=== PATIENT | female | born 2000 | race Caucasian/White ===

== ENCOUNTER → 2019-12-23 16:20 | Outpatient (CLI) | payer BC, SELFPAY ==
--- NOTE | 2019-12-23 16:21 | XR_ITS ---
PROCEDURE: XR SHOULDER LT MIN 2V CLINICAL INDICATION: shoulder pain COMPARISON: No exams were available for comparison FINDINGS: No fracture, dislocation, lytic change, or blastic change evident. No significant degenerative change IMPRESSION: No acute findings. Dictated by: Arsalan Aquino MD 12/23/2019 16:40 Electronically signed by Arsalan Aquino MD in [place] 12/23/2019 16:40
== END ==
PROVIDERS: PCP Nurse Practitioner Family; Visit Provider Nurse Practitioner Family
DX: M25.512 Pain in left shoulder (principal)
CPT/HCPCS: 73030

== ENCOUNTER → 2020-01-09 08:31 | Outpatient (CLI) | payer BC, SELFPAY ==
--- NOTE | 2020-01-09 08:32 | MR_ITS ---
PROCEDURE: MR SHOULDER LT WO CON CLINICAL INDICATION: shoulder pain Left shoulder pain COMPARISON: XR SHOULDER LT MIN 2V from 12/23/2019 TECHNIQUE: Routine multiplanar multi echo sequences are performed without gadolinium enhancement. FINDINGS: There is slight increased T2 signal involving the supraspinatus tendon suggesting tendinopathy/tendinosis. No evidence of rotator cuff tear. The supraspinatus, infraspinatus, subscapularis, and teres minor tendons appear intact. The bicipital tendon is in place. The labral have an unremarkable appearance. No significant effusion evident. No fracture or dislocation. There is borderline narrowing of the acromial humeral interval at 6 mm IMPRESSION: 1. No evidence of rotator cuff tear or labral tear. 2. Borderline narrowing of the acromial humeral interval with tendinopathy/tendinosis of the supraspinatus tendon Dictated by: Arsalan Aquino MD 01/10/2020 09:38 Electronically signed by Arsalan Aquino MD in [place] 01/10/2020 09:38
== END ==
PROVIDERS: PCP Nurse Practitioner Family; Visit Provider Nurse Practitioner Family
DX: M25.512 Pain in left shoulder (principal)
CPT/HCPCS: 73221

== ENCOUNTER → 2020-08-16 17:14 | Outpatient (CLI) | payer BC, SELFPAY ==
[2020-08-16 17:39] LABS: Basophils # 0.1 K/mm3 (0-0.2); Basophils % 0.6 % (0.1-2.0); Eosinophils # 0.2 K/mm3 (0.0-0.4); Eosinophils % 2.1 % (0.1-12.0); Hematocrit 48.5 % (37.0-47.0); Hemoglobin 15.6 g/dL (12.2-16.2); Lymphocytes # 3.1 K/mm3 (0.7-4.5); Lymphocytes % 33.3 % (10-50); Mean Corpuscular HGB Conc 32.3 g/dL (31.8-35.4); Mean Corpuscular Hemoglobin 28.8 pg (27.0-31.2); Mean Corpuscular Volume 89.3 fl (81-99); Mean Platelet Volume 7.8 fl (7.4-10.4); Monocytes # 0.5 K/mm3 (0.1-1.0); Monocytes % 5.8 % (1.7-9.3); Neutrophils # 5.4 K/mm3 (1.8-7.8); Neutrophils % 58.1 % (37.0-80.0); Platelet Count 337 K/mm3 (142-424); Red Blood Count 5.43 M/mm3 (4.20-5.40); Red Cell Distribution Width 12.9 % (11.5-17.5); White Blood Count 9.3 K/mm3 (4.8-10.8)
[2020-08-16 17:50] LABS: Chloride 107 mmol/L (98-107)
[2020-08-16 17:51] LABS: Potassium 3.9 mmoL/L (3.5-5.1); Sodium 141 mmol/L (136-145)
[2020-08-16 17:53] LABS: Alanine Aminotransferase 17 U/L (12-78); Albumin Level 4.3 g/dl (3.5-5.0); Albumin/Globulin Ratio 1.5 (1.1-1.8); Alkaline Phosphatase 64 U/L (38-126); Anion Gap 12.9 mEq/L (5-15); Aspartate Amino Transferase 23 U/L (14-36); Bilirubin,Total 0.6 mg/dl (0.2-1.3); Blood Urea Nitrogen 9 mg/dl (7-17); Carbon Dioxide 25 mmol/L (22.0-30.0); Estimated Glomerular Filt Rate 156 ml/min (>60); GFR (African American) 188 ML/MIN (>60); Globulin 2.9 g/dL (1.3-3.2); Total Protein,Serum 7.2 g/dl (6.3-8.2)
[2020-08-16 17:54] LABS: Calcium 9.1 mg/dl (8.4-10.2); Glucose 119 mg/dl (74-100)
[2020-08-16 17:59] LABS: C-Reactive Protein 0.4 mg/L (0-4)
[2020-08-16 18:10] LABS: Erythrocyte Sedimentation Rate 4 mm/hr (0-20); T4 (Thyroxine) 7.4 ug/dl (5.53-11.0)
[2020-08-16 18:24] LABS: Thyroid Stimulating Hormone 1.88 uIU/mL (0.465-4.68)
[2020-08-16 18:41] LABS: Hemoglobin A1C 4.9 % (4.0-6.0)
[2020-08-18 18:18] LABS: RA Latex Turbid. <10.0 IU/mL (0.0-13.9)
[2020-08-19 23:38] LABS: Anti-Cyclic Citrullinated Pept 5 units (0-19)
[2020-08-20 12:18] LABS: Anti-Centromere B Antibodies <0.2 AI (0.0-0.9); Anti-Jo-1 <0.2 AI (0.0-0.9); Anti-Smith Antibody <0.2 AI (0.0-0.9); Antichromatin Antibodies <0.2 AI (0.0-0.9); Antiscleroderma-70 Antibodies <0.2 AI (0.0-0.9); Sjogren's Anti-SS-A <0.2 AI (0.0-0.9); Sjogren's Anti-SS-B <0.2 AI (0.0-0.9)
[2020-08-20 15:23] LABS: Anti-DNA (DS) Ab Qn 1 IU/mL (0-9)
== END ==
PROVIDERS: Visit Provider Nurse Practitioner Family
DX: M25.50 Pain in unspecified joint (principal); F32.9 Major depressive disorder, single episode, unspecified; F41.9 Anxiety disorder, unspecified; R73.09 Other abnormal glucose
CPT/HCPCS: 80053; 83036; 84436; 84443; 85025; 85651; 86140; 86200; 86225; 86235; 86431

== ENCOUNTER → 2021-03-27 22:01 | Outpatient (CLI) | payer BC, SELFPAY ==
[2021-03-27 22:55] LABS: Amphetamine/Metha Screen,Urine Negative ng/ml (<1000)
[2021-03-27 22:56] LABS: Barbiturates Screen,Urine Negative ng/ml (<200); Benzodiazepines Screen,Urine Negative ng/ml (<200)
[2021-03-27 22:57] LABS: Cannabinoid Screen,Urine Negative ng/ml (<50)
[2021-03-27 22:58] LABS: Cocaine Screen,Urine Negative ng/ml (<300); Methadone Screen,Urine Negative ng/ml (<300)
[2021-03-27 22:59] LABS: Opiate Screen,Urine Negative ng/ml (<300)
[2021-03-27 23:00] LABS: Phencyclidine Screen,Urine Negative ng/ml (<25)
[2021-03-27 23:01] LABS: T4 (Thyroxine) 6.3 ug/dl (5.53-11.0)
[2021-03-27 23:14] LABS: Thyroid Stimulating Hormone 2.32 uIU/mL (0.465-4.68)
== END ==
PROVIDERS: Visit Provider Nurse Practitioner Family
DX: E66.9 Obesity, unspecified (principal); Z68.30 Body mass index [BMI] 30.0-30.9, adult
CPT/HCPCS: 80305; 84436; 84443

== ENCOUNTER 2021-04-22 10:37 | Emergency (ER) | payer BC, SELFPAY ==
[2021-04-22 10:39] VITALS: BP 134/87; PULSE 95; RESP 16; TEMP 36.8; O2SAT 100; BMI 26.6
[2021-04-22 10:54] VITALS: BP 131/82; PULSE 98; RESP 18; TEMP 36.9
--- NOTE | 2021-04-22 11:03 | HMH.EDUTC ---
[facility] [place] Disposition Clinical Impression: Viral syndrome, Exposure to COVID-19 virus Disposition: Home, Self-Care Condition on Discharge: Good Instructions: Preventing the Spread of Coronavirus Discharge Instructions Additional Instructions: Drink plenty of fluids. Take tylenol for pain or fever. Return if you begin to have difficulty breathing. Follow up with your regular doctor. GO TO THE ER FOR ANY WORSENING SYMPTOMS Referrals: Blanca Yost APRN [Primary Care Provider] - Forms: Work/School Release Time of Disposition: 11:14 Medical Decision Making - Medical Records Medical records reviewed: No: I reviewed the patient's medical records. - Luis Miguel Inquiry Pt receiving controlled substance: No Vital Signs: 04/22/21 10:39 04/22/21 10:54 Temperature 98.2 F 98.5 F Temperature Source Oral Pulse Rate 98 H Pulse Rate [Left] 95 H Respiratory Rate 16 18 Blood Pressure 131/82 Blood Pressure [Right Arm] 134/87 Blood Pressure Mean [Right Arm] 102 Blood Pressure Source [Right Arm] Automatic Cuff Blood Pressure Position [Right Arm] Sitting 02 Sat by Pulse Oximetry 100 [facility] [place] HPI - General Stated complaint: covid test Time Seen by Provider: 04/22/21 11:03 Mode of Arrival: Ambulatory Source of Information: Patient Limitations: No Limitations Description of Symptoms (Recalled from Triage Doc. by RN): pt needs a covid test to return to work. pt is experiencing congestion, cough, and sudden loss of taste/smell. HEENT Symptoms (Recalled from RN notes): Yes (loss of taste and smell. congestion.) Resp Symptoms (Recalled from RN notes): Yes (cough-nonproductive) Skin Symptoms (Recalled from RN notes): No MS Symptoms (Recalled from RN notes): No Functional Status (Recalled from RN notes): na - History of Present Illness Provider Complaint: She needs a covid test to return to her work. She states that her symptoms are feeling better. - Related Data Previous Rx's Medication Instructions Recorded phentermine 37.5 mg tablet 37.5 mg PO DAILY #30 tab 03/27/21 Allergies Allergy/AdvReac Type Severity Reaction Status Date / Time No Known Allergies Allergy Verified 03/27/21 16:31 - Worker's Comp Is this a Worker's Comp case?: No [facility] History - Hepatitis A Screen Drug use history?: No High risk sexual behaviors?: No History of sexually transmitted infection?: No Currently employed?: No Childcare worker?: No Do you have indoor plumbing?: Yes Do you have electricity?: Yes Attestation statement:: This patient has been screened for Hepatitis A risk factors. I have reviewed the patient's past medical history: Yes Medical History: Reports:: Anxiety, Depression, Migraine Denies:: Chronic Obstructive Pulmonary Disease (COPD), Heart Murmur, Seizures Laterality Cases: Bilateral: Tonsillectomy, Other (wisdom teeth) Amputation: No Fractures: Yes - Social History Smoking Status: Never smoker Alcohol Intake: never Substance Use Type: denies use Occupational Status: student, employed Household Members: family - Psychiatric History Pschychiatric History:: Reports:: Anxiety, Depression Family Hx:: Hypertension ROS Obtained: Yes All systems reviewed & no additional complaints - Constitutional Constitutional: Reports system reviewed and no additional complaints, except as docu - Eyes Eyes: Reports system reviewed and no additional complaints, except as docu - ENT Ears, Nose, Mouth, and Throat: Reports system reviewed and no additional complaints, except as docu - Cardiovascular Cardiovascular: Reports system reviewed and no additional complaints, except as docu - Respiratory Respiratory: Reports system reviewed and no additional complaints, except as docu Physical Exam - General General appearance: alert, in no apparent distress - Head Head exam: atraumatic, normocephalic, normal inspection - Eye Eye exam: Present: normal appearance, PERRL, EOMI - ENT ENT ex
--- NOTE | 2021-04-22 17:29 | PC.NURSE ---
attempted to call pt about positive covid results.
== END 2021-04-22 11:16 | disposition home or self-care (01) ==
PROVIDERS: Emergency Provider Nurse Practitioner Family; PCP Nurse Practitioner Family
DX: U07.1 COVID-19 (principal); R05 Cough; R43.9 Unspecified disturbances of smell and taste
CPT/HCPCS: 99202; G0463; U0003

== ENCOUNTER → 2021-08-19 17:33 | Outpatient (CLI) | payer BC, SELFPAY ==
[2021-08-19 19:01] LABS: Basophils # 0.1 K/mm3 (0-0.2); Basophils % 0.7 % (0.1-2.0); Eosinophils # 0.1 K/mm3 (0.0-0.4); Eosinophils % 1.3 % (0.1-12.0); Hematocrit 42.2 % (37.0-47.0); Hemoglobin 13.8 g/dL (12.2-16.2); Lymphocytes # 3.1 K/mm3 (0.7-4.5); Lymphocytes % 36.3 % (10-50); Mean Corpuscular HGB Conc 32.7 g/dL (31.8-35.4); Mean Corpuscular Volume 88.7 fl (81-99); Mean Platelet Volume 8.6 fl (7.4-10.4); Monocytes # 0.6 K/mm3 (0.1-1.0); Monocytes % 6.8 % (1.7-9.3); Neutrophils # 4.7 K/mm3 (1.8-7.8); Neutrophils % 54.9 % (37.0-80.0); Platelet Count 342 K/mm3 (142-424); Red Blood Count 4.76 M/mm3 (4.20-5.40); Red Cell Distribution Width 13.3 % (11.5-17.5); White Blood Count 8.6 K/mm3 (4.8-10.8)
[2021-08-19 19:30] LABS: Alanine Aminotransferase 14 U/L (12-78); Albumin Level 4.6 g/dl (3.5-5.0); Albumin/Globulin Ratio 1.5 (1.1-1.8); Alkaline Phosphatase 49 U/L (38-126); Anion Gap 13.7 mEq/L (5-15); Aspartate Amino Transferase 25 U/L (14-36); Bilirubin,Total 0.5 mg/dl (0.2-1.3); Blood Urea Nitrogen 8 mg/dl (7-17); Calcium 10.1 mg/dl (8.4-10.2); Carbon Dioxide 29 mmol/L (22.0-30.0); Chloride 102 mmol/L (98-107); Chol/HDL Ratio 2.8 (1-3.5); Cholesterol 134 mg/dl (140-200); Estimated Glomerular Filt Rate 154 ml/min (>60); GFR (African American) 187 ML/MIN (>60); Glucose 81 mg/dl (74-100); HDL Cholesterol 48 mg/dl (40-60); Potassium 4.7 mmoL/L (3.5-5.1); Sodium 140 mmol/L (136-145); Total Protein,Serum 7.6 g/dl (6.3-8.2); Triglycerides 125 mg/dl (30-150); VLDL Cholesterol 25 mg/dL (0-40)
[2021-08-19 19:31] LABS: Hemoglobin A1C 6.6 % (4.0-6.0)
[2021-08-19 19:41] LABS: Direct LDL Cholesterol 56.57 mg/dL (100-129)
[2021-08-19 19:47] LABS: 25-OH Vitamin D, Total 54.7 ng/mL (30-100)
[2021-08-19 19:48] LABS: T4 (Thyroxine) 8.7 ug/dl (5.53-11.0)
[2021-08-19 19:50] LABS: HCG,Quantitative < 2 mIU/ml (0-5.42)
== END ==
PROVIDERS: Visit Provider Nurse Practitioner Family
DX: R11.2 Nausea with vomiting, unspecified (principal); N92.0 Excessive and frequent menstruation with regular cycle; R53.83 Other fatigue
CPT/HCPCS: 80053; 80061; 82306; 83036; 84436; 84443; 84702; 85025

== ENCOUNTER → 2021-08-20 13:26 | Outpatient (CLI) | payer BC, SELFPAY | PROVIDERS: Visit Provider Nurse Practitioner Family | DX: N92.0 Excessive and frequent menstruation with regular cycle (principal); R11.2 Nausea with vomiting, unspecified; R53.83 Other fatigue | CPT/HCPCS: 87086 ==

== ENCOUNTER → 2021-09-23 08:27 | Outpatient (CLI) | payer BC, SELFPAY ==
[2021-09-23 08:44] LABS: Coronavirus 19, PCR Not Detected (NotDetected); Influenza A, PCR Not Detected (NotDetected); Influenza B, PCR Not Detected (NotDetected)
== END ==
PROVIDERS: PCP Nurse Practitioner Family; Visit Provider Nurse Practitioner
DX: Z20.822 Contact with and (suspected) exposure to COVID-19 (principal)
CPT/HCPCS: C9803; U0003; U0005

== ENCOUNTER → 2021-09-25 09:47 | Outpatient (CLI) | payer BC, SELFPAY ==
[2021-09-25 10:03] LABS: Coronavirus 19, PCR Not Detected (NotDetected); Influenza A, PCR Not Detected (NotDetected); Influenza B, PCR Not Detected (NotDetected)
== END ==
PROVIDERS: Visit Provider Nurse Practitioner
DX: Z20.822 Contact with and (suspected) exposure to COVID-19 (principal)
CPT/HCPCS: C9803; U0003; U0005

== ENCOUNTER → 2021-11-13 17:43 | Outpatient (CLI) | payer BC, SELFPAY ==
[2021-11-13 18:42] LABS: Basophils # 0.1 K/mm3 (0-0.2); Basophils % 1.6 % (0.1-2.0); Eosinophils # 0.1 K/mm3 (0.0-0.4); Eosinophils % 1.1 % (0.1-12.0); Hematocrit 41.5 % (37.0-47.0); Hemoglobin 13.4 g/dL (12.2-16.2); Lymphocytes % 43.7 % (10-50); Mean Corpuscular HGB Conc 32.2 g/dL (31.8-35.4); Mean Corpuscular Hemoglobin 29.1 pg (27.0-31.2); Mean Corpuscular Volume 90.3 fl (81-99); Mean Platelet Volume 8.8 fl (7.4-10.4); Monocytes # 0.4 K/mm3 (0.1-1.0); Monocytes % 5.9 % (1.7-9.3); Neutrophils # 3.2 K/mm3 (1.8-7.8); Neutrophils % 47.6 % (37.0-80.0); Platelet Count 338 K/mm3 (142-424); Red Cell Distribution Width 13.3 % (11.5-17.5); White Blood Count 6.7 K/mm3 (4.8-10.8)
[2021-11-13 19:09] LABS: Hemoglobin A1C 4.7 % (4.0-6.0)
[2021-11-13 19:48] LABS: Alanine Aminotransferase 23 U/L (12-78); Albumin Level 4.9 g/dl (3.5-5.0); Albumin/Globulin Ratio 1.8 (1.1-1.8); Alkaline Phosphatase 53 U/L (38-126); Anion Gap 14.3 mEq/L (5-15); Aspartate Amino Transferase 38 U/L (14-36); Bilirubin,Total 0.5 mg/dl (0.2-1.3); Blood Urea Nitrogen 13 mg/dl (7-17); Calcium 9.6 mg/dl (8.4-10.2); Carbon Dioxide 28 mmol/L (22.0-30.0); Chloride 100 mmol/L (98-107); Estimated Glomerular Filt Rate 125 ml/min (>60); GFR (African American) 151 ML/MIN (>60); Globulin 2.8 g/dL (1.3-3.2); Glucose 72 mg/dl (74-100); Potassium 4.3 mmoL/L (3.5-5.1); Sodium 138 mmol/L (136-145); Total Protein,Serum 7.7 g/dl (6.3-8.2)
[2021-11-13 20:02] LABS: Microalbumin/Creatinine Ratio 7.7
[2021-11-13 20:08] LABS: Creatinine,Urine Random 122 mg/dL (Not Estab.)
[2021-11-13 20:18] LABS: Thyroid Stimulating Hormone 1.33 uIU/mL (0.465-4.68)
== END ==
PROVIDERS: Visit Provider Nurse Practitioner Family
DX: E11.9 Type 2 diabetes mellitus without complications (principal); Z79.84 Long term (current) use of oral hypoglycemic drugs
CPT/HCPCS: 80053; 82043; 82570; 83036; 84443; 85025

== ENCOUNTER → 2021-11-22 17:48 | Outpatient (CLI) | payer BC, SELFPAY ==
[2021-11-24 09:31] LABS: Hep A Ab, Total Negative (Negative); Hep B Surface Ab, Qual Reactive (.); Hepatitis C Antibody <0.1 s/co ratio (0.0-0.9)
== END ==
PROVIDERS: Visit Provider Nurse Practitioner Family
DX: Z02.0 Encounter for examination for admission to educational institution (principal)
CPT/HCPCS: 86706; 86708; 87380

== ENCOUNTER → 2021-12-03 18:09 | Outpatient (CLI) | payer BC, SELFPAY ==
[2021-12-05 08:31] LABS: Rubella Antibodies, IgG 5.99 index (Immune >0.99)
[2021-12-05 14:17] LABS: Measles Antibodies, IgG 47.7 AU/mL (Immune >16.4); Mumps Abs, IgG 95.2 AU/mL (Immune >10.9); Varicella Zoster IgG 313 index (Immune >165)
[2021-12-06 01:47] LABS: Hep Be Ag Negative (Negative)
== END ==
PROVIDERS: PCP Nurse Practitioner Family; Visit Provider Nurse Practitioner Family
DX: Z02.0 Encounter for examination for admission to educational institution (principal)
CPT/HCPCS: 86735; 86762; 86765; 86787; 87350

== ENCOUNTER → 2021-12-19 08:44 | Outpatient (CLI) | payer BC, SELFPAY | PROVIDERS: Visit Provider Nurse Practitioner | DX: Z20.822 Contact with and (suspected) exposure to COVID-19 (principal) | CPT/HCPCS: C9803; U0003; U0005 ==

== ENCOUNTER 2021-12-26 15:18 | Emergency (ER) | payer BC, SELFPAY ==
[2021-12-26 15:19] VITALS: BP 126/72; PULSE 110; RESP 26; TEMP 38.4; O2SAT 99; BMI 25.0
[2021-12-26 15:51] LABS: POC Glucose,Bedside 89 (70-110)
--- NOTE | 2021-12-26 15:57 | HMH.EDFEV ---
ED Disposition Clinical Impression: Viral syndrome Disposition: Home, Self-Care Condition on Discharge: Good Instructions: DI for Fever (Symptom) -- Adult Referrals: Blanca Yost APRN [Primary Care Provider] - - Critical Care Critical Care Time: No Attestation: On 12/26/21, the high probability of a clinically significant, sudden or life threatening deterioration of the following system(s) required my full and direct attention, intervention and personal management. The time I documented below is in addition to time spent performing reported procedures but includes the following listed in this critical care notation. Medical Decision Making - Medical Records Medical records reviewed: Yes: I reviewed the patient's medical records. - Luis Miguel Inquiry Pt receiving controlled substance: No Vital Signs: 12/26/21 15:19 Temperature 101.1 F H Temperature Source Oral Pulse Rate [Radial] 110 H Respiratory Rate 26 H Blood Pressure [Right Arm] 126/72 Blood Pressure Mean [Right Arm] 90 Blood Pressure Position [Right Arm] Sitting 02 Sat by Pulse Oximetry 99 Oxygen Delivery Method Room Air - Lab Data Lab Results 12/26/21 15:33: POC Glucose 89 12/26/21 15:35: Urine Color Yellow, Urine Appearance Clear, Urine pH 6.0, Ur Specific [place] 1.010, Urine Protein Negative, Urine Glucose (UA) Negative, Urine Ketones Negative, Urine Blood Negative, Urine Nitrate Negative, Urine Bilirubin Negative, Urine Urobilinogen 1.0, Ur Leukocyte Esterase 1+ A, Urine RBC None, Urine WBC 3-5, Ur Squamous Epith Cells 3-5, Urine Bacteria Trace 12/26/21 15:35: WBC 3.3 L, RBC 4.96, Hgb 13.9, Hct 41.0, MCV 82.6, MCH 28.0, MCHC 33.9, RDW 13.4, Plt Count 195, MPV 9.6, Neut % (Auto) 64.7, Lymph % (Auto) 28.9, [place] % (Auto) 4.7, Eos % (Auto) 0.2, Baso % (Auto) 1.5, Neut # (Auto) 2.1, Lymph # (Auto) 1.0, [place] # (Auto) 0.2, Eos # (Auto) 0.0, Baso # (Auto) 0.1 12/26/21 15:35: Sodium 133 L, Potassium 4.4, Chloride 100, Carbon Dioxide 26, Anion Gap 11.4, BUN 9, Creatinine 0.60, Estimated Creat Clear 163, Estimated GFR 125, Est GFR ( Amer) 151, Glucose 87, Calcium 8.6, Total Bilirubin 1.2, AST 80 H, ALT 74, Alkaline Phosphatase 63, Total Protein 7.5, Albumin 4.5, Globulin 3.0, Albumin/Globulin Ratio 1.5 12/26/21 15:35: Lactate 1.0 12/26/21 15:35: Urine HCG, Qual Negative 12/26/21 15:50: SARS-CoV-2 (PCR) Not detected, Influenza A Untype (PCR) Not detected, Influenza Type B (PCR) Not detected Result diagrams: 12/26/21 15:35 12/26/21 15:35 Orders (Tests/Meds): ED MEDICATIONS Discontinued Medications Generic Name Dose Route Start Last Admin Trade Name Freq PRN Reason Stop Dose Admin Acetaminophen 1,000 mg 12/26/21 15:53 12/26/21 15:56 Acetaminophen 500mg Tab PO 12/26/21 15:54 1,000 mg ONCE ONE Administration Sodium Chloride 1,000 mls @ 999 mls/hr 12/26/21 16:00 12/26/21 15:56 Sod Chlor 0.9% 1000ml Bag IV 12/26/21 17:00 999 mls/hr .Q1H1M KEELEY Administration ORDERS Category Date Time Status Blood Culture Stat Micro 12/26/21 15:44 Received Urine Culture Stat Micro 12/26/21 15:35 Received - Reevaluation(s) Time: 17:52 Reevaluation #1: On reevaluation, the patient is feeling better. Laboratory work unremarkable. Repeat neuro exam is normal. Patient is ambulatory. Findings consistent with viral syndrome. Patient needs follow-up with PCP in 48 hours. Given strict return precautions. Verbalized understanding. Medical Decision Narrative: 21-year-old female presented to the emergency department with some myalgias and thoughts of dehydration. The patient does have fever on initial presentation. I am concerned for possible UTI or other viral infection. Work-up initiated. Fever HPI - General Chief Complaint: Fever Stated Complaint: feels dehydrated Time Seen by Provider: 12/26/21 15:25 Mode of Arrival: Ambulatory Limitations: No Limitations Description of Symptoms (Recalled from ER Triage Doc. by Gudelia
[2021-12-26 16:05] LABS: Microscopic, Urine URINE MICROSCOPIC (MICROSCOPIC)
[2021-12-26 16:13] LABS: Coronavirus 19, PCR Not Detected (NotDetected); Influenza A, PCR Not Detected (NotDetected); Influenza B, PCR Not Detected (NotDetected)
[2021-12-26 16:14] LABS: Basophils # 0.1 K/mm3 (0-0.2); Basophils % 1.5 % (0.1-2.0); Eosinophils % 0.2 % (0.1-12.0); Hemoglobin 13.9 g/dL (12.2-16.2); Lymphocytes % 28.9 % (10-50); Mean Corpuscular HGB Conc 33.9 g/dL (31.8-35.4); Mean Corpuscular Volume 82.6 fl (81-99); Mean Platelet Volume 9.6 fl (7.4-10.4); Monocytes # 0.2 K/mm3 (0.1-1.0); Monocytes % 4.7 % (1.7-9.3); Neutrophils # 2.1 K/mm3 (1.8-7.8); Neutrophils % 64.7 % (37.0-80.0); Platelet Count 195 K/mm3 (142-424); Red Blood Count 4.96 M/mm3 (4.20-5.40); Red Cell Distribution Width 13.4 % (11.5-17.5); White Blood Count 3.3 K/mm3 (4.8-10.8)
[2021-12-26 16:16] LABS: Appearance,Urine CLEAR (Clear); Bilirubin,Urine Negative (Negative); Blood, Urine Negative (Negative); Color,Urine YELLOW (Yellow); Glucose,Urine (UA) Negative (Negative); Ketones,Urine Negative (Negative); Leukocyte Esterase,Urine 1+ (Negative); Nitrate,Urine Negative (Negative); Protein,Urine Negative (Negative)
[2021-12-26 16:20] LABS: Chloride 100 mmol/L (98-107)
[2021-12-26 16:21] LABS: Potassium 4.4 mmoL/L (3.5-5.1); Sodium 133 mmol/L (136-145); Urine Pregnancy, HCG Qual. Negative (Negative)
[2021-12-26 16:23] LABS: Alanine Aminotransferase 74 U/L (12-78); Albumin Level 4.5 g/dl (3.5-5.0); Albumin/Globulin Ratio 1.5 (1.1-1.8); Alkaline Phosphatase 63 U/L (38-126); Anion Gap 11.4 mEq/L (5-15); Aspartate Amino Transferase 80 U/L (14-36); Bilirubin,Total 1.2 mg/dl (0.2-1.3); Blood Urea Nitrogen 9 mg/dl (7-17); Calcium 8.6 mg/dl (8.4-10.2); Carbon Dioxide 26 mmol/L (22.0-30.0); Creatinine Clearance Estimated 163 mL/min (50-200); Estimated Glomerular Filt Rate 125 ml/min (>60); GFR (African American) 151 ML/MIN (>60); Glucose 87 mg/dl (74-100); Total Protein,Serum 7.5 g/dl (6.3-8.2)
[2021-12-26 16:30] VITALS: BP 99/62; PULSE 102; RESP 20; O2SAT 96
[2021-12-26 16:50] LABS: Bacteria,Urine Trace /lpf
[2021-12-26 17:30] VITALS: BP 109/62; PULSE 92; RESP 20; O2SAT 98
--- NOTE | 2021-12-26 17:30 | PC.NURSE ---
FAMILY AT BEDSIDE UPDATED ON PLAN OF CARE
[2021-12-26 18:31] VITALS: BP 105/62; PULSE 78; RESP 16; TEMP 36.6; O2SAT 98
== END 2021-12-26 18:35 | disposition home or self-care (01) ==
PROVIDERS: Emergency Provider Emergency Medicine; PCP Nurse Practitioner Family
DX: B34.9 Viral infection, unspecified (principal); R50.9 Fever, unspecified; E86.0 Dehydration; M79.10 Myalgia, unspecified site; R53.1 Weakness; Z20.822 Contact with and (suspected) exposure to COVID-19; G43.909 Migraine, unspecified, not intractable, without status migrainosus; F32.A Depression, unspecified; F41.9 Anxiety disorder, unspecified; Z79.84 Long term (current) use of oral hypoglycemic drugs; Z79.899 Other long term (current) drug therapy
CPT/HCPCS: 80053; 81001; 81025; 82962; 83605; 85025; 87040; 87086; 96360; 96365; 96375; 99283; C9803; U0003; U0005

== ENCOUNTER 2023-08-01 12:29 | Emergency (ER) | payer BC, SELFPAY ==
[2023-08-01 12:35] VITALS: BP 123/77; PULSE 84; RESP 20; TEMP 36.7; O2SAT 99; BMI 25.8
--- NOTE | 2023-08-01 12:45 | EXP.UTC ---
Discharge Plan Disposition Patient Disposition: Home, Self-Care Condition: Good Prescriptions Prescriptions: New sulfamethoxazole-trimethoprim [Bactrim DS] 800-160 mg tablet 1 tab PO Q12H Qty: 20 0RF No Action (DME) Dexcom G6 Transmitter Device See Rx Instructions .MEDSUPPLY Qty: 1 0RF Rx Instructions: As directed phentermine [Adipex-P] 37.5 mg tablet 37.5 mg PO DAILY Qty: 30 0RF Rx Instructions: must administer 30 minutes before or 1-2 hours after breakfast (DME) Dexcom G6 Sensor Device See Rx Instructions MISCELLANE .MEDSUPPLY Qty: 3 0RF Rx Instructions: As directed metformin 500 mg tablet extended release 24 hr 500 mg PO BID Qty: 60 2RF sertraline 50 mg tablet 50 mg PO DAILY Qty: 30 3RF Referrals Follow up/Referrals: Provider,Referral, MD [Primary Care Provider] - See instructions Clinical Impressions Clinical Impression: Mastitis Instructions Patient Instructions: DI for Mastitis Discharge ED Provider: Missy Gracia [facility] HPI General Stated complaint: sore breast Time Seen by Provider: 08/01/23 12:45 History of Present Illness Provider Complaint: Breast soreness, redness X 2 days. She is . No fever, but achy and tired. Onset (ago): day(s) Location: chest Relieving factors: none Exacerbating factors: none Associated symptoms: denies other symptoms Treatments prior to arrival: none Related Data Previous Rx's Medication Instructions Recorded blood-glucose transmitter (Dexcom #1 ea 09/09/21 G6 Transmitter device) blood-glucose sensor (Dexcom G6 #3 ea 10/28/21 Sensor device) phentermine 37.5 mg tablet 37.5 mg PO DAILY #30 tabs 11/22/21 (Adipex-P) metformin 500 mg tablet,extended 500 mg PO BID #60 tabs 11/25/21 release 24 hr sertraline 50 mg tablet 50 mg PO DAILY #30 tabs 01/24/22 sulfamethoxazole 800 1 tab PO Q12H #20 tabs 08/01/23 mg-trimethoprim 160 mg tablet (Bactrim DS) Allergies Allergy/AdvReac Type Severity Reaction Status Date / Time No Known Allergies Allergy Verified 11/22/21 13:16 [facility] Disclaimer: The information contained in this section may have been updated after the patient was seen, as this information can be updated by other users. Social History Smoking Status: Never smoker alcohol intake: never substance use type: denies use current occupational status: employed and student Travel in the last 8 weeks: None household members: family ROS Obtained: Yes All systems reviewed & no additional complaints except as documented Integumentary/Breasts Skin/Breast: Reports breast pain Physical Exam General General appearance: alert and in no apparent distress Head Head exam: atraumatic, normocephalic and normal inspection Eye Eye exam: Present normal appearance, PERRL and EOMI ENT ENT exam: Present normal exam, normal oropharynx, mucous membranes moist, TM's normal bilaterally and normal external ear exam Neck Neck exam: Present normal inspection, full ROM and trachea midline; Absent meningismus or lymphadenopathy Chest Chest inspection: Present normal inspection and symmetric chest wall rise; Absent tenderness Respiratory Respiratory exam: Present normal lung sounds bilaterally; Absent respiratory distress Cardiovascular Cardiovascular exam: Present regular rate and normal rhythm; Absent JVD Abdominal Exam Abdominal exam: Present soft and normal bowel sounds; Absent distention, tenderness or guarding Extremities Exam Extremities exam: Present normal inspection, full ROM and normal capillary refill; Absent calf tenderness Back Exam Back exam: Present normal inspection; Absent tenderness Neurological Exam Neurological exam: Present alert and oriented X3 Psychiatric Psychiatric exam: Present normal affect and normal mood Skin Skin exam: Present warm, dry, intact and normal color Lymphatic Lymphatic Findings: no adenopathy Medical Decision Making Luis Miguel
[2023-08-01 12:56] VITALS: BP 123/77; PULSE 84; RESP 20; TEMP 36.7; O2SAT 99
== END 2023-08-01 12:58 | disposition home or self-care (01) ==
PROVIDERS: Emergency Provider Physician Assistant
DX: N61.0 Mastitis without abscess (principal)
CPT/HCPCS: 99212; 99214; G0463

== ENCOUNTER 2024-02-21 16:48 | Emergency (ER) | payer BC, SELFPAY ==
[2024-02-21 17:10] VITALS: BP 134/88; PULSE 75; RESP 19; TEMP 36.9; O2SAT 100; BMI 27.9
[2024-02-21 17:25] LABS: UTC Pregnancy Test, Urine Negative (Negative)
--- NOTE | 2024-02-21 17:39 | EXP.UTC ---
Discharge Plan Disposition Patient Disposition: Home, Self-Care Condition: Good Prescriptions Prescriptions: New promethazine 12.5 mg tablet 12.5 mg PO TID PRN (Reason: nausea and vomiting) Qty: 7 0RF No Action (DME) Dexcom G6 Transmitter Device See Rx Instructions .MEDSUPPLY Qty: 1 0RF Rx Instructions: As directed (DME) Dexcom G6 Sensor Device See Rx Instructions MISCELLANE .MEDSUPPLY Qty: 3 0RF Rx Instructions: As directed sertraline 50 mg tablet 50 mg PO DAILY Qty: 30 3RF estradiol 0.01 % (0.1 mg/gram) cream See Rx Instructions .ROUTE .COMPLEX Patient Comments: INSERT 1 GRAM VAGINALLY ONCE DAILY EVERY NIGHT AT BEDTIME FOR 2 WEEKS, THEN AT BEDTIME TWICE A WEEK Rx Instructions: INSERT 1 GRAM VAGINALLY ONCE DAILY EVERY NIGHT AT BEDTIME FOR 2 WEEKS, THEN AT BEDTIME TWICE A WEEK Referrals Follow up/Referrals: Provider,Referral, MD [Primary Care Provider] - See instructions Activity Restrictions/Add. Instructions Additional Instructions/Restrictions: Drink extra fluids with and between meals. If you have difficulty drinking, try very small amounts of water or suck on ice chips. ? Avoid fruit juices, as these do not replace minerals and can actually increase diarrhea. ? Children and adults can use sports drinks to replenish electrolytes. Younger children and infants should use products formulated for children, like oral rehydration solutions. ? Eat food in small amounts and let your stomach recover. ? Get lots of rest. You may feel tired or weak. ? No greasy or fried foods for the next 24-48 hours BRAT diet Bananas Rice Apples and [place] ? Make sure to drink plenty of liquids ? Return if needed ? Straight to ER if any life threatening symptoms ? You was given an outpatient order for diarrhea panel, please collect specimen and bring back to outpatient lab then call back to the [facility] or follow up with family doctor for results Phenergan as prescribed for N/V ? Follow up with family doctor in the next 48-72 hours if no improvement or any worsening of symptoms Clinical Impressions Clinical Impression: Viral syndrome Stand Alone Forms Stand Alone Forms: Work/School Release Instructions Patient Instructions: Nausea and Vomiting-Adult Discharge ED Provider: Christina Ortiz [facility] [place] General Stated complaint: Vomiting Mode of Arrival: Ambulatory Source of Information: Patient Limitations: No Limitations Time Seen by Provider: 02/21/24 17:42 Description of Symptoms (Recalled from Triage Doc. by RN): Pt's symptoms are diarrhea, abdominal cramping, vomiting, and migraine. HEENT Symptoms (Recalled from RN notes): Yes Resp Symptoms (Recalled from RN notes): No Skin Symptoms (Recalled from RN notes): No MS Symptoms (Recalled from RN notes): No Functional Status (Recalled from RN notes): n/a History of Present Illness Provider Complaint: Patient states that she was in [place] and started with diarrhea States that she got home and diarrhea stopped but then she started vomiting and has had N/V since earlier today and she has had a achy like headache was worried that she was getting dehydrated so she came in Related Data Home Medications Medication Instructions Recorded Confirmed estradiol 0.01% (0.1 mg/gram) See Rx Instructions .Route .COMPLEX 02/21/24 02/21/24 vaginal cream Previous Rx's Medication Instructions Recorded blood-glucose transmitter (Dexcom #1 ea 09/09/21 G6 Transmitter device) blood-glucose sensor (Dexcom G6 #3 ea 10/28/21 Sensor device) sertraline 50 mg tablet 50 mg PO DAILY #30 tabs 01/24/22 promethazine 12.5 mg tablet 12.5 mg PO TID PRN nausea and 02/21/24 vomiting #7 tabs Allergies Allergy/AdvReac Type Severity Reaction Status Date / Time No Known Allergies Allergy Verified 11/22/21 13:16 Worker's Comp Is this a Worker's Comp case?: No [facility] Disclaimer: The information contained in this section may have been updated after the patient was seen, as this information can be updated by other users. Social History Smoking Status: Never smoker alcohol intake: never substance use type: denies use current occupational status: employed and student Travel in the last 8 weeks: None household members: family ROS Obtained: Yes All systems reviewed & no additional complaints except as documented and Yes Systems reviewed as appropriate & no additional complaints except as documented Constitutional Constitutional: Reports system reviewed and no additional complaints, except as documented, Reports as per HPI and Reports headache(s) ENT Ears, Nose, Mouth, and Throat: Reports system reviewed and no additional complaints, except as documented, Reports as per HPI and Reports headache(s) Cardiovascular Cardiovascular: Reports system reviewed and no additional complaints, except as documented and Reports as per HPI Respiratory Respiratory: Reports system reviewed and no additional complaints, except as documented and Reports as per HPI Gastrointestinal Gastrointestingal: Reports system reviewed and no additional complaints, except as documented, as per HPI, diarrhea (diarrhea 2 days ago but none since), nausea and vomiting Neurologic Neurologic: Reports headache(s) Physical Exam General General appearance: alert and in no apparent distress Respiratory Respiratory exam: Present normal lung sounds bilaterally; Absent respiratory distress or wheezes Cardiovascular Cardiovascular exam: Present regular rate, normal rhythm and normal heart sounds Neurological Exam Neurological exam: Present alert, oriented X3 and normal gait Medical Decision Making Luis Miguel Inquiry Pt receiving controlled substance: No Luis Miguel was queried for this patient: No Vital Signs: 02/21/24 17:10 Temperature 98.4 F Temperature Source Oral Pulse Rate [Right Radial] 75 Respiratory Rate 19 Blood Pressure [Right Arm] 134/88 Blood Pressure Mean [Right Arm] 103 Blood Pressure Source [Right Arm] Automatic Cuff Blood Pressure Position [Right Arm] Sitting 02 Sat by Pulse Oximetry 100 Oxygen Delivery Method Room Air Lab Data Lab results reviewed: Yes I reviewed the patient's lab results. Lab Results 02/21/24 17:16: Tst Clinic Negative Medical Decision Narrative: Medication discussed with pharmacy
[2024-02-21] MEDS: ONDANSETRON 4MG/2ML VIAL 4 MG IV (17:48)
[2024-02-21] MEDS: 0.9 % SODIUM CHLORIDE 1000ML 1,000 ML 500 ML IV (17:49)
[2024-02-21] MEDS: KETOROLAC 30MG/ML VIAL 15 MG IV (17:49)
[2024-02-21 19:03] VITALS: BP 134/88; PULSE 75; RESP 19; TEMP 36.9; O2SAT 100
== END 2024-02-21 19:03 | disposition home or self-care (01) ==
PROVIDERS: Emergency Provider Nurse Practitioner
DX: R11.2 Nausea with vomiting, unspecified (principal); R19.7 Diarrhea, unspecified; R51.9 Headache, unspecified; B34.9 Viral infection, unspecified
CPT/HCPCS: 81025; 96361; 96374; 96375; 99212; 99214; G0463; J2405

== ENCOUNTER 2024-11-16 15:00 | Outpatient (CLI) | payer BC, SELFPAY | END 2024-11-16 23:59 | disposition home or self-care (01) | LOC: LAB.DROPOF 11-17 08:45 | PROVIDERS: PCP Obstetrics & Gynecology; Visit Provider Obstetrics & Gynecology | DX: Z34.90 Encounter for supervision of normal pregnancy, unspecified, unspecified trimester (principal) | CPT/HCPCS: 87086 ==

== ENCOUNTER 2025-01-02 10:05 | Outpatient (CLI) | payer BC, SELFPAY ==
--- NOTE | 2025-01-02 10:06 | US_ITS ---
PROCEDURE: US OB /MATERNAL DETAIL CLINICAL INDICATION: anatomy COMPARISON: No exams were available for comparison FINDINGS: Transabdominal sonographic images of the pelvis were obtained. From her established due date she is 19 weeks 4 days. Single viable intrauterine gestation. Cephalic position. Placenta: Anteriorplacenta grade 1. There is an average amount of fluid. The cervix appears satisfactory. Closed and measuring 3.15 cm in length. Complete survey performed and was unremarkable on the submitted images as in PACS. No discrete anomalies identified on survey imaging by technologist. Active fetus. Three-vessel cord with satisfactory umbilical cord insertion. 4- chamber heart noted. Situs, aortic arch, LVOT, RVOT, three-vessel view appear normal. Survey of brain & ventricles Unremarkable. Cerebellum, thalamus, choroid plexus, cisterna magna appear normal. Face and neck survey unremarkable. Profile, nasion, lips and nose appeared normal. Diaphragm and chest views unremarkable. Abdomen: Both kidneys noted and unremarkable. Stomach and bladder noted and satisfactory. Spine: Survey of the spine satisfactory with no anomalies identified nor imaged. Cervical, thoracic, lower spine appear normal. Both arms and legs noted. Amniotic Fluid: Adequate. MVP 3.31 cm. Measurements: Average ultrasound age 20weeks. Estimated due date by ultrasound age 0705/22/2025. Estimated weight 318g BPD = 19weeks 6days HC = 19weeks 6days AC = 19weeks 6days FL = 20weeks Growth Percentile= 63 Heart Rate = 153bpm Cerebellum = 18weeks 2days Humerus = 21weeks 2days HC/AC is 1.18 FL/BPD is 0.7 FL/AC is 0.22 IMPRESSION: 1. Viable fetus in the cephalic presentation with an anterior placenta grade 1. 2. The fluid is within normal limits with an MVP 3.31 cm. 3. Anatomical scan appears normal. 4. biometry is consistent with the dates. Dictated by: Luca Meléndez MD 01/02/2025 12:15 Luca Meléndez MD in [place] 01/02/2025 12:15
== END 2025-01-02 23:59 | disposition home or self-care (01) ==
LOC: RAD 10:06
PROVIDERS: Visit Provider Obstetrics & Gynecology
DX: Z36.3 Encounter for antenatal screening for malformations (principal); Z3A.19 19 weeks gestation of pregnancy; E11.9 Type 2 diabetes mellitus without complications; E66.3 Overweight
CPT/HCPCS: 76811

== ENCOUNTER 2025-02-20 10:41 | Outpatient (CLI) | payer BC, SELFPAY ==
[2025-02-20 12:09] LABS: Glucose 1 Hour 97 mg/dL (74-100)
== END 2025-02-20 23:59 | disposition home or self-care (01) ==
LOC: LAB 10:41
PROVIDERS: Visit Provider Obstetrics & Gynecology
DX: E11.9 Type 2 diabetes mellitus without complications (principal)
CPT/HCPCS: 36415; 82947